=== PATIENT | male | born 1980 | race Caucasian/White ===

== ENCOUNTER 2019-04-02 10:37 | Outpatient (CLI) | payer MEDICAID, SELFPAY ==
[2019-04-02 11:55] LABS: Calculated LDL 91 mg/dL; Cholesterol 155 mg/dL (50-200); Glucose 89 mg/dL (70-100); HDL Cholesterol 55 mg/dL (40-60); Triglyceride 49 mg/dL (30-150)
== END 2019-04-02 10:57 ==
PROVIDERS: Visit Provider General Practice
DX: Z13.220 Encounter for screening for lipoid disorders (principal); Z13.1 Encounter for screening for diabetes mellitus; Z00.00 Encounter for general adult medical examination without abnormal findings
CPT/HCPCS: 36415; 80061; 82947; 83721

== ENCOUNTER 2019-05-12 10:55 | Outpatient (CLI) | payer MEDICAID, SELFPAY ==
--- NOTE | 2019-05-12 09:51 | DI.RAD_ITS ---
SYMPTOM/DIAGNOSIS: RT KNEE PAIN RIGHT KNEE: The joint spaces are well maintained. There is minimal periarticular spurring. No joint effusion is seen. The bones are normally mineralized. IMPRESSION: Minimal degenerative changes.
== END 2019-05-12 11:15 ==
PROVIDERS: Visit Provider Orthopaedic Surgery
DX: M25.561 Pain in right knee (principal); M17.11 Unilateral primary osteoarthritis, right knee
CPT/HCPCS: 73562

== ENCOUNTER 2024-12-20 18:40 | Emergency (ER) | payer BC, SELFPAY ==
[2024-12-20] VITALS (24 sets, daily range): BP systolic 127–161; BP diastolic 76–98; PULSE 54–88; RESP 9–25; TEMP 36.9; O2SAT 97–100
--- NOTE | 2024-12-20 18:30 | RT.EKG_ITS ---
APPROVED REPORT Exam: Resting ECG Reason for Exam: HEART RACING Patient Location: E HR:86 bpm ECG Measurements Heart Rate 86 AXIS ME 143 P 55 QRSd 97 QRS 44 QT 379 T 42 QTc 454 Conclusion Sinus rhythm...normal P axis, V-rate 60- 99 Probable left atrial enlargement...P >50mS, <-0.10mV V1
--- NOTE | 2024-12-20 18:45 | DI.RAD_ITS ---
Exam(s) XR CHEST 2V PA LATERAL EXAM: XR CHEST 2V PA LATERAL CLINICAL HISTORY: palpations TECHNIQUE: 2D digital imaging was performed. Two views. COMPARISON: No exams were available for comparison FINDINGS: HEART: Normal size. Aorta: Not dilated. PULMONARY VASCULATURE: Normal. MEDIASTINUM: Unremarkable. LUNGS: Clear. PLEURAL SPACE: No pleural effusion or pneumothorax. BONE:Unremarkable for age. SOFT TISSUES: Unremarkable. IMPRESSION: No acute abnormality. DATA REPOSITORY: RADIATION DOSE DELIVERED:
[2024-12-20 19:16] LABS: Abs Immature Grans 0.02 10^3/uL (0.0-0.06); Absolute Basophil Count 0.06 10^3/uL (0.0-0.2); Absolute Eosinophil Count 0.02 10^3/uL (0.0-0.7); Absolute Monocyte Count 0.52 10^3/uL (0.1-0.8); Absolute Neutrophil Count 8.81 10^3/uL (1.2-6.7); Basophils % 0.5 %; Eosinophils % 0.2 %; HCT 44.3 % (40.0-50.0); HGB 14.9 g/dL (13.5-17.5); Immature Grans % 0.2 %; Lymphocytes % 16.5 %; MCH 29.9 pg (27.0-33.0); MCHC 33.6 % (32.0-36.0); MCV 89 fL (80-95); MPV 10.1 fL (8.0-11.0); Monocytes % 4.6 %; Platelet Count 280 10^3/uL (130-400); RBC 4.99 10^6/uL (4.36-5.78); RDW 12.2 % (11.8-14.1); RDW-SD 40.1 fL
[2024-12-20 19:19] LABS: Absolute Lymphocyte Count 1.86 10^3/uL (1.2-3.4)
[2024-12-20 19:42] LABS: ALT 29 U/L (16-63); AST 19 U/L (15-37); Albumin 4.1 g/dL (3.4-5.0); Alkaline Phosphatase 79 U/L (46-116); Anion Gap 7.3 mmol/L (3-11); BUN 17 mg/dL (7-18); Bilirubin, Total 0.2 mg/dL (0.2-1.0); CO2 28.7 mmol/L (21.0-32.0); CREATININE 1.3 mg/dL (0.70-1.30); Calcium 8.7 mg/dL (8.5-10.1); Chloride 101 mmol/L (98-107); Glucose 126 mg/dL (74-106); Magnesium 2.2 mg/dL; Potassium 3.7 mmol/L (3.5-5.1); Sodium 137 mmol/L (136-145); TSH (W/Ref FT4) 1.79 uIU/mL (0.36-3.74); Total Protein 6.7 g/dL (6.4-8.2); Troponin I 5 ng/L (<or=76)
--- NOTE | 2024-12-20 19:50 | ED.GENADUL_ITS ---
Discharge Plan Disposition Patient Disposition: Home Discharge Details Clinical Impression: Anxiety reaction Primary Care Provider: Gian Olivares ED Provider: Flaco Hill Home Meds and New Rx's Prescriptions: No Action melatonin 10 mg tablet 10 mg PO HS PRN (Reason: sleep) clindamycin phosphate 1 % solution 1 applic topical DAILY Patient Comments: 06/04/22 Dr Quiros Discharge Instructions Instructions: Anxiety, Adult ED Additional Instructions: If you have any new or significant worsening of symptoms feel free to return the emergency department for reassessment otherwise follow-up with your primary care provider as needed. It is a possibility that the marijuana and higher level of THC increase the probability of your experience this evening. It is recommended to reduce or stop marijuana usage altogether as this may overall be beneficial for your health. Referrals: Gian Olivares, [Primary Care Provider] - (As needed for reassessment) Discharge Data Discharge Date/Time-TO BE ENTERED AT DEPARTURE: 12/20/24 20:48 HPI General Mode of arrival: EMS . Date/Time Provider Initiated Documentation: 12/20/24 18:40 . Limitations to Documentation: no limitations . Information obtained by: patient and RN notes reviewed . History of Present Illness 44 year old M presents to the emergency department with the chief complaint of Palpitations, described as moderate and similar to prior episodes, Patient started experiencing this minute(s) (30) and it has been constant. Other factors that worsen symptoms (THC) . Patient did receive the following treatments prior to arrival, none Related Data Home Medications ?Medication ?Instructions ?Recorded ?Confirmed melatonin 10 mg tablet 10 mg PO HS PRN sleep 04/25/22 12/20/24 clindamycin phosphate 1 % topical 1 applic topical DAILY 06/27/22 12/20/24 solution Allergies Allergy/AdvReac Type Severity Reaction Status Date / Time No Known Allergies Allergy Verified 12/20/24 18:46 General Stated Complaint: Palpitatns THOMAS: 3 Review of Systems Constitutional Constitutional: Reports chills, Denies fever(s), Denies headache(s) and Denies malaise ENT Ears, Nose, Mouth, and Throat: Reports dizziness and Denies headache(s) Cardiovascular Cardiovascular: Reports as per HPI, Denies diaphoresis, Denies syncope, Reports rapid heart rate, Reports lightheadedness, Reports palpitations and Denies dyspnea Respiratory Respiratory: Denies cough and Denies dyspnea Gastrointestinal Gastrointestinal: Reports abdominal pain and Reports nausea Neurologic Neurologic: Reports dizziness, Denies syncope and Denies headache(s) Psychiatric Psychiatric: Reports anxiety Endocrine Endocrine: Reports palpitations Exam Const General: cooperative, healthy appearing, comfortable, no acute distress, not diaphoretic and not ill appearing Nutritional Appearance: average body habitus Orientation: alert, awake and oriented x3 Limitations: mental status not altered Neck Neck: normal visual inspection, full ROM, trachea midline, supple and no anterior neck swelling Thyroid: thyroid normal Carotids: normal carotid upstroke and no bruits Chest Chest: normal inspection of the chest Resp Effort & Inspection: normal respiratory effort and able to speak in complete sentences Auscultation: clear to auscultation bilaterally Cardio Jugular venous pressure: no JVD Palpation: normal PMI Rate: regular rate Rhythm: regular rhythm Heart Sounds: S1 normal, S2 normal, no click, no gallops, no murmurs and no rubs Bruits: no abdominal aortic bruits and no carotid bruits Pulses: radial pulses present bilaterally 2+ Skin General skin exam: no rashes or lesions noted Neuro General: patient alert, patient awake, patient oriented x3, tone normal and moves all extremities Course Vital Signs Vital signs: Vital Signs Temperature 36.9 C 12/20/24 18:41 Pulse 88 12/20/24 18:41 Respiratory Rate 20 12/20/24 18:41 Blood Pressure 145/98 H 12/20/24 18:41 Pulse Oximetry 99 12/20/24 18:41 Temperature 36.9 C 12/20/24 18:41 Pulse 88 12/20/24 18:41 Respiratory Rate 20 12/20/24 18:41 Blood Pressure 145/98 H 12/20/24 18:41 Blood Pressure Position Supine 12/20/24 18:41 Pulse Oximetry 99 12/20/24 18:41 Oxygen Delivery Method Room Air 12/20/24 18:41 Oxygen Flow Rate 0 12/20/24 18:41 Lab/Test Results Lab/Test Results: Laboratory Tests Range/Units 12/20/24 19:10 WBC (4.4-10.8) 10^3/uL 11.30 H RBC (4.36-5.78) 10^6/uL 4.99 Hgb (13.5-17.5) g/dL 14.9 Hct (40.0-50.0) % 44.3 MCV (80-95) fL 89 MCH (27.0-33.0) pg 29.9 MCHC (32.0-36.0) % 33.6 RDW (11.8-14.1) % 12.2 Plt Count (130-400) 10^3/uL 280 MPV (8.0-11.0) fL 10.1 Immature Gran % % 0.2 Neutrophils % % 78.0 Lymphocytes % % 16.5 Monocytes % % 4.6 Eosinophils % % 0.2 Basophils % % 0.5 Nucleated RBC % (0.0-0.3) % 0.0 Absolute Neutrophils (1.2-6.7) 10^3/uL 8.81 H Absolute Lymphocytes (1.2-3.4) 10^3/uL 1.86 Absolute Monocytes (0.1-0.8) 10^3/uL 0.52 Absolute Eosinophils (0.0-0.7) 10^3/uL 0.02 Absolute Basophils (0.0-0.2) 10^3/uL 0.06 Sodium (136-145) mmol/L 137 Potassium (3.5-5.1) mmol/L 3.7 Chloride (98-107) mmol/L 101 Carbon Dioxide (21.0-32.0) mmol/L 28.7 Anion Gap (3-11) mmol/L 7.3 BUN (7-18) mg/dL 17 Creatinine (0.70-1.30) mg/dL 1.3 Est GFR (CKD-EPI 2020) (mL/min/1.73m2) 69.90 Glucose (74-106) mg/dL 126 H Calcium (8.5-10.1) mg/dL 8.7 Magnesium mg/dL 2.2 Total Bilirubin (0.2-1.0) mg/dL 0.2 AST (15-37) U/L 19 ALT (16-63) U/L 29 Alkaline Phosphatase (46-116) U/L 79 Troponin I (<or=76) ng/L 5 Total Protein (6.4-8.2) g/dL 6.7 Albumin (3.4-5.0) g/dL 4.1 TSH (0.36-3.74) uIU/mL 1.79 Medical Decision Making Patient presenting to the emergency department for chief complaint of palpitations and dizziness. Patient reports this evening he had a little 5-mi nute cardio workout after having some caffeine then sat down and rested and had some marijuana and afterwards his stomach started to get upset, felt like he had a wave of chills and then started feeling palpitations and slight dizziness. He waited a little bit and symptoms did not pass so he called EMS to have him transported the emergency department. Patient does state that this has occurred previously when he has had edible marijuana but not quite for the same duration. He does state that the marijuana he smoked this evening was a higher strength than his typical amount. Patient does have history of anxiety and panic disorder that is managed by relaxation and deep breathing and is not on medications. Physical exam is unremarkable. EKG done in triage shows sinus rhythm with no obvious ischemic pattern but please see physician interpretation for full interpretation of EKG. we will plan on checking labs and ruling out cardiac emergencies but at this time I have high suspicion of anxiety secondary to THC use Reviewed patient's initial labs and has slight elevation of white count otherwise nondiagnostic CBC, CMP shows glucose of 126 nonfasting within normal limits THC, negative initial troponin, and otherwise labs are within expected value. Reassessed patient and states improvement of overall symptoms and appears less anxious. Will do 1 hour repeat troponin for reassurance and plan to discharge. Repeat troponin also negative with minimal change in 1 hour testing. Reassessed patient and patient stable with no tachycardia normal tensive and no tachypnea. Given this I am highly suspicious of an anxiety response secondary to the THC inhalation. Discussed with patient effects of THC along with monitoring and return and follow-up precautions but otherwise I do feel that patient is able to be safely discharged. After discussion of diagnosis and plan of care patient has no further needs, questions, or concerns and states clear understanding to return to the emergency department for any worsening symptoms. This documentation was generated using [employer] dictation system, please disregard any oddities of phrase or misspellings. Quality:SDOH Health Related Social Needs: Health related social needs feeling lonely/isolated (Z 60.8) PFSH All Active Problems (Updated 12/20/24 @ 20:42 by Flaco Hill NP) Anxiety reaction (Acute) Seborrheic dermatitis (Acute 08/11/24) Rosacea (Acute 08/11/24) Family history of colon cancer in father (Acute) History of acne (Acute) Medical History Acne vulgaris (~05/2022) 06/04/22 Dr Quiros Family History Father Alcohol use disorder Colon cancer Social History Smoking/Tobacco Use Status: Former Tobacco Use Tobacco: How many years used: 8 Quit status: has quit before Smoking risk assessment performed?: Yes Alcohol Intake: current Alcohol Intake frequency: holidays/special occasions only Drug use: Daily Substance use type: marijuana Adopted: No Caregiver/Support person: No Foster care: No Household members: none Housing: house Number of Children: 0 Communication Needs: None Education Level: high school Do you need help understanding health information?: Rarely current occupation: [employer] Pets and animals: No Sexually active: No Do you think of yourself as: lesbian/messina/homosexual Current gender identity: male What is your relationship status?: never How often do you talk on the phone with friends or family?: once per week How often do you get together with friends or relatives?: once per week Do you belong to any clubs or organized social groups?: no Panel score (0-1 are the most socially isolated patients): 0 What type of physical activity do you participate in: weight lifting and other Details: boxing Duration: 45-60 minutes/day Frequency: 5-6 times per week Nabila/Zoroastrian: None Special nabila needs: No Seatbelt use: always Helmet use: Yes Helmet use: always Drive intox or ride w/intox fire truck driver: No
[2024-12-20 20:37] LABS: Troponin I 7 ng/L (<or=76)
--- NOTE | 2024-12-20 20:58 | DI.VRAD_ITS ---
PROCEDURE INFORMATION: Exam: XR Chest Exam date and time: 12/20/2024 7:36 PM Age: 44 years old Clinical indication: Other: Palpatations TECHNIQUE: Imaging protocol: Radiologic exam of the chest. Views: 2 views. COMPARISON: No relevant prior studies available. FINDINGS: Lungs: No pulmonary consolidation is seen. Pleural spaces: No pleural effusion or pneumothorax is demonstrated. Heart/Mediastinum: The heart appears normal in size. Bones/joints: The visualized bony structures appear grossly intact. IMPRESSION: No active disease is seen in the chest. Dictated and Authenticated by: David Vergara MD. Orderin Liz Sam MD
== END 2024-12-20 20:48 | disposition home or self-care (01) ==
PROVIDERS: Emergency Provider Nurse Practitioner Family; PCP Family Medicine
DX: F41.1 Generalized anxiety disorder (principal); R00.2 Palpitations; Z87.891 Personal history of nicotine dependence
CPT/HCPCS: 80053; 93005; 99285; 71046; 83735; 84443; 84484; 85025; 93010; 99284

== ENCOUNTER 2025-02-08 19:15 | Outpatient (REF) | payer BC, SELFPAY ==
[2025-02-12 19:36] LABS: Metanephrines, U 214 mcg/24 h; Normetanephrine, U 499 mcg/24 h; Total Metanephrines, U 713 mcg/24 h; Urine Volume 3200 mL
== END 2025-02-08 19:16 | disposition home or self-care (01) ==
LOC: LBN 19:15
PROVIDERS: PCP Family Medicine; Visit Provider Family Medicine
DX: R00.2 Palpitations (principal)
CPT/HCPCS: 81050; 83835

== ENCOUNTER 2025-02-12 09:54 | Day surgery (SDC) | payer BC, SELFPAY ==
--- NOTE | 2025-02-11 16:55 | W.PM.DSUDISC ---
Date of service: 02/12/25 Discharge Plan Disposition Patient Disposition: Home Condition: Good Discharge Details Reason For Visit: Screening colonoscopy Attending Provider: Everett Pride Primary Care Provider: Gian Olivares Home Meds and New Rx's Prescriptions: Continued hydroxyzine HCl 25 mg tablet 25 mg PO TID PRN (Reason: anxiety) Qty: 30 0RF Vanicream Moisturizing Lotion 1 applic topical DAILY PRN melatonin 10 mg tablet 20 mg PO HS PRN (Reason: sleep) cod liver oil Capsule 3 cap PO DAILY Probacap 10 billion cell capsule 100 mmu cells PO DAILY Culturelle 10 billion cell capsule 1 cap PO DAILY Super Enzyme [id number] mg capsule 1 cap PO TID Discontinued bisacodyl [Dulcolax (bisacodyl)] 5 mg tablet,delayed release (DR/EC) 5 mg PO ONCE Qty: 4 0RF Rx Instructions: Take per colonoscopy instructions provided by ordering providers office polyethylene glycol 3350 17 gram/dose powder 17 g PO ONCE Qty: 238 0RF Rx Instructions: Take per colonoscopy instructions provided by ordering providers office Discharge Instructions Instructions: Colon polyps Additional Instructions: Shilo, it was nice to meet you today, and I hope you feel well after the procedure. Things went very smoothly. Your prep was outstanding, and I could see everything fine. I did find, and removed 2 polyps today. As we discussed beforehand, these will be sent off for testing, and once we know the nature of these polyps, we will be able to offer a better recommendation regarding the timing of future colonoscopies. If you need anything or have any questions, please do not hesitate to call, otherwise we will be in touch in about a week or so once the results are available 1. If tolerated, consume a soft, low fiber diet for 1-2 days. 2[address] Do not drive, drink alcohol, operate machinery, make critical decisions, or do activities that require coordination or balance for 24 hours. 3. Because air was put into your colon during the procedure, expelling air from your rectum (passing gas or farting) is normal. 4. You may not have a bowel movement for 1-3 days because of the colonoscopy prep. This is normal. 5. Go directly to the emergency room if you notice any of the following: Develop chills (warm to touch), or if you have a thermometer and your temperature is above 101 Difficulty breathing or difficultly swallowing Persistent vomiting Severe abdominal pain, other than gas cramps Severe chest pain Black, tarry stools Any bleeding ? exceeding one tablespoon 6. Call your physician if the site where your intravenous was started becomes red, swollen, painful, and warm to touch. 7. Your physician has reviewed your pre-procedure medications. Please continue to take those medications as previously ordered. You will be given specific information/education regarding any changes to your medications before leaving. Activity:: Activity as Tolerated Diet:: As Tolerated Discharge Orders Discharge Orders: Discharge Order (Routine); Ordered 02/11/25 Ordered By: Everett Pride DS: Diagnosis Discharge Diagnosis (1) Encounter for screening colonoscopy: Status: Acute Asessment and Plan: Follow-up on polypectomy results
--- NOTE | 2025-02-11 16:57 | W.COLOREPORT ---
Date of service: 02/12/25 Time of Service: 12:12 Colonoscopy Report Date of procedure: 02/12/25 Pre-op diagnosis general: Screening colonoscopy Post-op diagnosis procedure note: other (Colon polyps) Procedure: Colonoscopy with polypectomy Surgeon: Everett Pride Anesthesia Type: General:No Airway Estimated blood loss (mL): 5 Pathology: other (0.5 cm pedunculated cecal polyp, 0.25 centimeter flat ascending colon polyp) Complications: None Disposition: same day Indications: Shilo is a 44-year-old male with family history of colon cancer who needs a screening colonoscopy Prep: Miralax/Dulcolax Procedure Start Time: 11:24 Procedure End Time: 11:47 Retraction Time: 11 Findings: 0.5 cm pedunculated cecal polyp, 0.25 centimeter flat ascending colon polyp Procedure Description: After the induction of anesthesia, and with Shilo in left lateral decubitus position, I began by performing an external anorectal exam.? Perineum and skin were normal, as was the anal verge.? There was no evidence of external hemorrhoids.? Next, I performed a digital rectal exam.? I did not appreciate any abnormal findings.? Next, I advanced a colonoscope into the rectal vault.? I performed retroflexion.? This appeared normal using insufflation, I then advanced the colonoscope beyond the rectal folds and into the sigmoid colon before advancing towards the cecum.? The scope was noted to be in the cecum by identification of the ileocecal valve and appendiceal orifice.? Within the ascending colon is 0.5 cm slightly pedunculated polyp. This was removed with a energize snare polypectomy without any issues. Specimen was retrieved. Excision appeared complete.?I then began withdrawing the colonoscope using repeated irrigation as necessary for full evaluation of the colonic mucosa. ?A few centimeters away, within the ascending colon was another polyp. This was about 0.25 cm, and a little more flat. This was removed with snare polypectomy as well. There was minimal bleeding from the site. Once the scope was withdrawn to the level of the rectum, great care was taken to examine portions of the rectal folds.? Finally, the scope was withdrawn and the patient was brought to the same-day surgery recovery unit as the anesthetic wore off. ?The findings and instructions were shared with the patient prior to discharge. [place] Bowel Prep [place] Bowel Prep Right Colon: 3 Left Colon: 3 Transverse Colon: 3 Total Score: 9
[2025-02-12 10:16] VITALS: BP 127/89; PULSE 70; RESP 16; TEMP 36.6; O2SAT 100
[2025-02-12] MEDS: Lactated Ringers 1,000 ML 80 ML IV (10:36)
--- NOTE | 2025-02-12 10:57 | W.ANESPRE ---
General Info Date of Service Date Performed: 02/12/25 Height: 6 ft Weight: 97.5 kg Body Mass Index (BMI): 29.1 Surgical Procedure: Operation Date: 02/12/25 10:35 Proposed Procedure Side Surgeon stephanie Pride MD Meds Allergies and Home Medications Allergies Allergy/AdvReac Type Severity Reaction Status Date / Time No Known Allergies Allergy Verified 02/12/25 10:14 Home Medication ?Medication ?Instructions ?Recorded emollient combination no.115 1 applic topical DAILY PRN 01/25/25 (Vanicream Moisturizing lotion) melatonin 10 mg tablet 20 mg PO HS PRN sleep 01/28/25 hydroxyzine HCl 25 mg tablet 25 mg PO TID PRN anxiety #30 tabs 02/02/25 Lactobacillus acidophilus 10 100 mmu cells PO DAILY 02/10/25 billion cell capsule (Probacap) Lactobacillus rhamnosus GG 10 1 cap PO DAILY 02/10/25 billion cell capsule (Culturelle) Pancreat-Bet PXu-cty-ryrm-pap 250 1 cap PO TID 02/10/25 mg-162 mg-65 mg-125 mg capsule (Super Enzyme) cod liver oil 3 cap PO DAILY 02/10/25 Current Visit Medications: Current Medications Generic Name Dose Route Start Last Admin Trade Name Freq PRN Reason Stop Dose Admin Ringer's Solution 1,000 mls @ 80 mls/hr 02/12/25 06:00 02/12/25 10:36 IV 02/12/25 23:59 80 mls/hr INFUSION CAREY Administration IV Miscellaneous Supplies 1 each 02/12/25 06:00 Iv Access IV 02/12/25 23:59 DIRECTED CAREY Ondansetron HCl 4 mg 02/11/25 16:57 Ondansetron 4 Mg/2 Ml Vial IVP 03/13/25 16:56 Q4H PRN PRN Nausea / Vomiting Sodium Chloride 0 ml 02/12/25 06:00 Normal Saline Flush 10 Ml Syr IV 02/12/25 23:59 PRN PRN Sodium Chloride 0 ml 02/12/25 06:00 Normal Saline 10 Ml Vial IJ 02/12/25 23:59 DIRECTED PRN Sterile Water 0 ml 02/12/25 06:00 Water,Injection,Sterile 10 Ml Vial IJ 02/12/25 23:59 DIRECTED PRN PFSH Active Problems Active Problems: Problem Status Onset Code Encounter for screening colonoscopy Acute Z12.11 Panic attack Acute F41.0 Palpitations Acute R00.2 Seborrheic dermatitis Acute 08/11/24 L21.9 Rosacea Acute 08/11/24 L71.9 Family history of colon cancer in father Acute Z80.0 History of acne Acute Z87.2 Medical History Medical History (Updated 02/11/25 @ 16:55 by Everett Pride MD) Acne vulgaris (~05/2022) 06/04/22 Dr Quiros Surgical History Surgical History (Updated 02/10/25 @ 13:27 by Kostas Wesley) Hx of wisdom tooth extraction Tobacco Smoking/Tobacco Use Status: Former Tobacco Use Passive smoking exposure: No Alcohol Alcohol Intake: current Alcohol intake frequency: holidays/special occasions only Substance Use Substance use: Current Sobriety Substance use type: former substance user Vital Signs and Lab Results Vital Signs Most Recent Vital Signs in EMR: Most Recent Vital Signs Temp Pulse Resp BP Pulse Ox 36.6 C 70 16 127/89 100 02/12/25 10:16 02/12/25 10:16 02/12/25 10:16 02/12/25 10:16 02/12/25 10:16 Lab Results Blood Type / Crossmatch: No Data to Display Complete Blood Count: No Data to Display Complete Metabolic Panel: No Data to Display Liver Function Panel: No Data to Display Coagulation Panel: No Data to Display Cardiac Panel: No Data to Display Arterial Blood Gas: No Data to Display Venous Blood Gas: No Data to Display Pancreas Panel: No Data to Display Thyroid Panel: No Data to Display Infectious Disease: No Data to Display Blood Cultures: No Data to Display Toxicology Panel: No Data to Display Imaging and Studies Imaging and Studies Study information below may be from another EMR and interpreted by another provider. Please see original notes in EMR for more complete details. EKG Summary: 12/20/24: Exam: Resting ECG Reason for Exam: HEART RACING Patient Location: E HR:86 bpm ECG Measurements Heart Rate 86 AXIS MT 143 P 55 QRSd 97 QRS 44 QT 379 T42 QTc 454 Conclusion Sinus rhythm...normal P axis, V-rate 60- 99 Probable left atrial enlargement...P >50mS, <-0.10mV V1 I have reviewed and I agree with the emergency room physician's ECG interpretation. Anesthesia Assessment and Plan Anesthesia History Personal History: No History of Anesthesia Complications Family History: No Family History of Anesthesia Complications Exercise Tolerance Exercise Tolerance: Metabolic Equivalents>4 Pertinent Negatives Pertinent Negatives: No Symptoms of GERD, No Major Cardiovascular Symptoms or Complaints and No Major Pulmonary Symptoms or Complaints Cardiac & Pulmonary Exam Cardiac Exam: Normal S1/S2 Heart Sounds Pulmonary Exam: Clear Bilateral Breath Sounds Implantable Cardiac Device Does patient have a Pacemaker or an ICD?: No Airway Exam Known Difficult Airway: No Mallampati Class: 2 Mouth Opening: Normal (> 3cm) Thyromental Distance: Greater than 3 cm Neck Range of Motion: Full ROM Neck Circumference: Normal Teeth Condition: Normal Dentition ASA Classification ASA Score: ASA 2 Emergency Case?: No NPO Status NPO Status: NPO Clears >2 hours, Solids >8 hours Anesthesia Plan Resuscitation Status: Full Code Anesthesia Technique: General Anesthesia Airway Planned: Natural Airway Monitors Used: Standard Monitors
[2025-02-12 11:00] VITALS: BMI 29.1
--- NOTE | 2025-02-12 11:38 | BOWEL_PTH ---
PATIENT: Flaco Pozo LOC: [facility] U#:[id number] AGE/SX: 44/M ROOM: RE02/12/[address]: Everett Pride MD : 1980 BED: DIS: 02/12/2025 SPEC #: [id number] RECD: 02/12/25 13:05 STATUS: WANDER REQ #: [id number] VERNELL: 02/12/25 11:[address]: Everett Pride DEPT: Surgical Specimen RECD BY: Yessenia Krishnamurthy ENTERED: 02/12/25 13:06 SP TYPE: Bowel OTHR DR: Gian Olivares DO Tissues: 1 - BIOPSY BOWEL 2 - BIOPSY BOWEL Procedures: GROSS AND MICRO LEVEL 4 Comments: [id number]
[2025-02-12 11:53] VITALS: BP 119/68; PULSE 65; RESP 20; TEMP 36.5; O2SAT 99
--- NOTE | 2025-02-12 11:55 | W.ANESPOSTOP ---
Postoperative Evaluation Date, Time and Location Date Performed: 02/12/25 Time Performed: 11:55 Patient Location: Day Surgery Unit Vital Signs Most Recent Imported Vital Signs: Most Recent Vital Signs Temp Pulse Resp BP Pulse Ox 36.5 C 65 20 119/68 99 02/12/25 11:53 02/12/25 11:53 02/12/25 11:53 02/12/25 11:53 02/12/25 11:53 Pain Score Most Recent Pain Score: Most Recent Pain Score Pain Level 1 02/12/25 10:16 Assessment Mental Status: Awake (Alert & Oriented to Patient Baseline) Airway and Respiratory Function: Patent airway with normal (patient baseline) respiratory exam Cardiovascular Function: Hemodynamically Stable Hydration Status: Adequately Hydrated Nausea & Vomiting: No Nausea or Vomiting Pain: Pt. Denies Any Pain Peripheral Nerve Block: Patient did not receive a nerve block
[2025-02-12 12:21] VITALS: BP 125/86; PULSE 46; RESP 20; TEMP 36.5; O2SAT 99
== END 2025-02-12 12:46 | disposition home or self-care (01) ==
LOC: SUR 09:54
PROVIDERS: PCP Family Medicine; Visit Provider Surgery
PROC: 0DJD8ZZ Inspection of Lower Intestinal Tract, Via Natural or Artificial Opening Endoscopic (ICD-10-PCS; CPT 45378; principal; 2025-02-12 10:30)
DX: Z12.11 Encounter for screening for malignant neoplasm of colon (principal); D12.0 Benign neoplasm of cecum; D12.2 Benign neoplasm of ascending colon
CPT/HCPCS: 45385; 88305; J2003; J2704